=== PATIENT | female | born 1945 | race Caucasian/White ===

== ENCOUNTER → 2016-05-19 | Outpatient (CLI) | payer MEDICARE, OTHER | LOC: SUN.DIA | DX: E11.65 Type 2 diabetes mellitus with hyperglycemia (principal); Z79.84 Long term (current) use of oral hypoglycemic drugs; Z68.29 Body mass index [BMI] 29.0-29.9, adult; Z71.3 Dietary counseling and surveillance; E78.5 Hyperlipidemia, unspecified; I10 Essential (primary) hypertension | CPT/HCPCS: G0108 ==

== ENCOUNTER → 2020-01-27 | Emergency (ER) | payer MEDICARE, OTHER ==
[~2020-01-27] VITALS: Ht 170.2 cm; Wt 81.8 kg
[~2020-01-27] MED LIST: CLEOCIN HC150 MG/CAP PO; GLUCOPHAGE XR500 M1 PO; GLUMETZA1000 MG PO; LANTUS SOLOS100 U/ML SQ; PRAVACHOL 40MG40 MG PO; QUINAPRIL HCTZ; SYNTHROID0.05 MG/TA PO; SYNTHROID0.075 MG/T PO; TOPROL XL100 MG PO; ZOFRAN 4MG T4 MG/TAB PO
[2020-01-27 17:14] VITALS: BP 165/87; PULSE 83; TEMP 98.3
[2020-01-27 19:45] LABS: ALBUMIN 3.5 gm/dL (3.5-5.0); BASO % 0.3 % (0.0-2.0); BILIRUBIN,TOTAL 0.6 mg/dL (0.0-1.0); CALCIUM 9.1 mg/dL (8.4-10.2); CREATININE, serum 0.7 (0.52-1.25); EOS # 0.2 (0.0-0.7); EOS % 1.9 % (0-4.0); GRAN # 6.5 (1.4-6.5); GRAN % 74.7 % (42.2-75.2); HEMOGLOBIN 11.3 g/dl (12.5-16.0); LYMPH # 1.1 (1.2-3.4); MEAN CELL VOLUME 87 fl (80.0-100.0); MEAN CORPUSCULAR HEMOGLOBIN 28 pg (27.0-31.0); MEAN CORPUSCULAR HGB CONC 32 g/dl (33.0-37.0); MEAN PLATELET VOLUME 10.2 fl (7.4-10.4); MONO # 0.8 (0.1-0.6); MONO % 9.6 % (1.7-9.3); PLATELET COUNT 235 K/mm3 (130-400); POTASSIUM 3.4 mmol/L (3.4-5.0); RED BLOOD COUNT 4.02 M/mm3 (4.10-5.30); REDCELL DISTRIBUTION WIDTH-CV 12.6 % (11.5-14.5); TOTAL PROTEIN 6.8 gm/dL (6.4-8.2)
[2020-01-27 19:54] LABS: HEMATOCRIT 34.9 % (37.0-47.0)
[2020-01-27 19:57] LABS: C-REACTIVE PROTEIN 12.6 mg/dL (0.0-0.9)
== END ==
LOC: COL.ER 16:47
PROVIDERS: Emergency Medicine
DX: I89.0 Lymphedema, not elsewhere classified (principal); L03.116 Cellulitis of left lower limb; L97.921 Non-pressure chronic ulcer of unspecified part of left lower leg limited to breakdown of skin; Z86.718 Personal history of other venous thrombosis and embolism; Z88.2 Allergy status to sulfonamides; Z79.4 Long term (current) use of insulin

== ENCOUNTER → 2023-04-02 | Outpatient (CLI) | payer MEDICARE | LOC: COL.VAS 03-05 13:32 → DIA.ED 12:53 | DX: E11.40 Type 2 diabetes mellitus with diabetic neuropathy, unspecified (principal); Z79.4 Long term (current) use of insulin; E78.5 Hyperlipidemia, unspecified; I10 Essential (primary) hypertension | CPT/HCPCS: G0108 ==